=== PATIENT | male | born 1970 | race Caucasian/White ===

== ENCOUNTER 2018-06-08 14:57 | Emergency (ER) | payer OTHER, SELFPAY ==
[2018-06-08] VITALS (7 sets, daily range): BP systolic 143–165; BP diastolic 80–124; PULSE 83–117; RESP 16–20; TEMP 37.1–37.4; O2SAT 95–99; BMI 35.4
--- NOTE | 2018-06-08 15:45 | ED.VISSUMM ---
- ER Visit Summary Date of Service: 06/08/18 Chief Complaint: Feel crummy History of Present Illness: The patient is a 47 M who presents for 3 days of feeling achy and feverish. Patient states 3 days ago he began feeling crummy, with fever and generalized achiness. His symptoms have waxed and waned since then. He has tried ibuprofen. He took 2 Keflex that were in the house. For the last days he has been having diarrhea. Today he feels weak and lightheaded. He denies any sore throat, ear pain, cough or congestion, chest pain, shortness of breath, abdominal pain, nausea or vomiting. He did get kicked in the left lower chest/upper abdomen by a cow last week. It did not hurt initially but he has been having some mild pain that has developed since a couple days afterwards. He denies any pain with breathing. Physical Examination: Vital signs: afebrile, hemodynamically stable, no hypoxia on room air General: well nourished, well developed, in no distress, appears ill Skin: warm, diaphoretic, no rash, no pallor HEENT: normocephalic and atraumatic; PERRL, EOMI, moist mucous membranes no oropharyngeal exudates or lesions, TMs are clear and pearly without any bulging, dullness or erythema bilaterally, neck is supple and nontender, no lymphadenopathy Cardiovascular: Tachycardic rate and rhythm without murmurs, no peripheral edema, 2+ pulses all distal extremities Respiratory: No increased work of breathing, lungs are clear to auscultation bilaterally, no rales, rhonchi or wheezing, no chest wall tenderness or crepitus Abdominal: Abdomen is soft, nontender with normoactive bowel sounds, no guarding or rebound, no masses and no bruising noted to the abdomen or chest wall MSK: Moves all extremities, no deformities, normal strength Neuro: Awake and alert, oriented ?4. No facial droop, sensation and motor function intact and symmetric Test Results: Abnormal Lab Results 06/08/18 06/08/18 06/08/18 16:10 16:10 16:10 WBC 9.3 RBC 4.87 Hgb 15.0 Hct 45.3 MCV 93.0 MCH 30.8 MCHC 33.1 RDW 12.9 RDW Differential 43.9 Plt Count 248 MPV 9.4 Immature Gran % (Auto) 0.200 Neut % (Auto) 76.6 H Lymph % (Auto) 12.0 L Dubois % (Auto) 10.6 H Eos % (Auto) 0.3 Baso % (Auto) 0.3 Absolute Neuts (auto) 7.1 Absolute Lymphs (auto) 1.12 Total Counted Not Reportable Differential Comment SCANNED PT 13.7 INR 1.1 APTT 30.4 Sodium 140 Potassium 3.6 Chloride 104 Carbon Dioxide 25.0 Anion Gap 11 BUN 12 Creatinine 1.24 Estim Creat Clear Calc 88.97 Est GFR (MDRD) Af Amer 81 Est GFR (MDRD) Non-Af 67 BUN/Creatinine Ratio 9.7 L Glucose 105 Lactic Acid Calcium 9.0 Total Bilirubin 1.40 H AST 33 ALT 56 Alkaline Phosphatase 78 Total Creatine Kinase 42 Troponin I < 0.015 Total Protein 8.2 Albumin 3.6 Globulin 4.6 H Albumin/Globulin Ratio 0.8 L Urine Color Urine Clarity Urine pH Ur Specific [place] Urine Protein Urine Glucose (UA) Urine Ketones Urine Occult Blood Urine Nitrite Urine Bilirubin Urine Urobilinogen Ur Leukocyte Esterase Urine RBC Urine WBC Ur Squamous Epith Cells Urine Bacteria Hyaline Casts Fine Granular Casts Urine Mucus 06/08/18 06/08/18 16:10 17:48 WBC RBC Hgb Hct MCV MCH MCHC RDW RDW Differential Plt Count MPV Immature Gran % (Auto) Neut % (Auto) Lymph % (Auto) Dubois % (Auto) Eos % (Auto) Baso % (Auto) Absolute Neuts (auto) Absolute Lymphs (auto) Total Counted Differential Comment PT INR APTT Sodium Potassium Chloride Carbon Dioxide Anion Gap BUN Creatinine Estim Creat Clear Calc Est GFR (MDRD) Af Amer Est GFR (MDRD) Non-Af BUN/Creatinine Ratio Glucose Lactic Acid 1.3 Calcium Total Bilirubin AST ALT Alkaline Phosphatase Total Creatine Kinase Troponin I Total Protein Albumin Globulin Albumin/Globulin Ratio Urine Color Susan Urine Clarity Clear Urine pH 5.0 Ur Specific [place] 1.015 Urine Protein 100 H Urine Glucose (UA) Normal Urine Ketones 5 H Urine Occult Blood 150 H Urine Nitrite Negative Urine Bilirubin 1 H Urine Urobilinogen 1 H Ur Leukocyte Esterase 25 H Urine RBC 0 SEEN Urine WBC 0-5 SEEN Ur Squamous Epith Cells 0 SEEN Urine Bacteria 0 SEEN Hyaline Casts 0-5 SEEN Fine Granular Casts 0 SEEN Urine Mucus 3+ Clinical Impression(s) from Imaging Studies Chest X-Ray 06/08/18 16:35 IMPRESSION: No acute cardiopulmonary disease. Electronically Signed: Jony Lord DO at 17:29 EDT Tel [phone], Service support , Abdomen/Pelvis CT 06/08/18 17:09 IMPRESSION: 1. No findings suggestive of mild sigmoid diverticulitis. There is no evidence of perforation or abscess. 2. Minimal stranding about the cecal without wall thickening or other abnormality. The finding is of uncertain importance. 3. Fatty infiltration liver. There are 2 hypodensities in the liver which may represent cysts. The possibility of small hypoechoic masses cannot be ruled out. 4. Bilateral inguinal hernias. Electronically Signed: Jony Lord DO at 18:58 EDT Tel [phone], Service support , Medications Given Discontinued Medications Acetaminophen (Tylenol) 1,000 mg PO X1 ONE Stop: 06/08/18 15:44 Last Admin: 06/08/18 16:04 Dose: 1,000 mg Ciprofloxacin HCl (Cipro) 500 mg PO X1 ONE Stop: 06/08/18 19:29 Last Admin: 06/08/18 19:58 Dose: 500 mg Sodium Chloride () 1,000 mls @ 999 mls/hr IV .[id number] MARY ANN Last Admin: 06/08/18 16:05 Dose: 999 mls/hr Metronidazole (Flagyl) 500 mg PO X1 ONE Stop: 06/08/18 19:29 Last Admin: 06/08/18 19:58 Dose: 500 mg Ondansetron HCl (Zofran Odt) 4 mg PO TAKE HOME MED ONE Stop: 06/08/18 19:29 Last Admin: 06/08/18 19:59 Dose: 4 mg Emergency Department Course and Treatment: Patient presents with vague symptoms for the last 3 days, including fever, myalgias, weakness, malaise, and now with diarrhea. Patient was diaphoretic on initial evaluation, and given his vague symptoms with diaphoresis and age, chest pain workup was included. EKG showed a sinus tachycardia without any ischemic changes. Chest x-ray showed no infiltrate. CBC showed no leukocytosis or anemia. Chemistry panel remarkable for mild elevation of creatinine at 1.2. No significant hepatic derangements. CK within normal limits. Lactate normal. Patient did have a history of getting kicked in the left upper abdomen by a cow 1 week ago, and thus a CT the abdomen and pelvis was included in the workup. It showed no signs of left upper abdominal trauma, but did reveal sigmoid diverticulitis. Patient had no tenderness on abdominal exam, but fever and diarrhea is consistent with diverticulitis. Patient received acetaminophen and IV fluids while in the emergency department and had improvement in his symptoms. He did spike a fever but improved after the Tylenol. On reevaluation he was feeling better no longer was diaphoretic. He was given Cipro and Flagyl for the diverticulitis and Zofran as well. He declined any pain medications and will take [id number] pain medication as needed. He was given a work note and discharged home with strict return instructions. Discharged in improved condition. Treatment Plan: [] Disposition: [] Impression: Acute sigmoid diverticulitis This note was generated with [employer] dictation software. It may contain incorrect words, spelling, and punctuation that were not noted in review of the chart prior to signing ED Disposition - Plan for ED Patient: Disposition: Home or Assisted Living Chief Complaint: Dizziness Instructions: ED Diverticulitis Prescriptions: Ondansetron [Zofran Odt] 4 mg PO Q8H PRN PRN #10 tab PRN Reason: Nausea Ciprofloxacin [Cipro] 500 mg PO BID #19 tab Metronidazole [Flagyl] 500 mg PO TID #29 tab Referrals: Jasen Metzger [Primary Care Provider] - 3-5 Days if not improving Additional Instructions: Take the antibiotic as prescribed for the full 10 days even if you feel better before then. You can continue using [id number] pain medication as needed for fever and pain. Use the Zofran to help with any nausea. If you have any worsening of your condition or any new concerning symptoms, please return immediately to the emergency department for another evaluation.
[2018-06-08] MEDS: Acetaminophen 500 MG Tablet 1000 MG PO (16:04)
[2018-06-08] MEDS: 0.9% Normal Saline 1,000 ML 999 ML IV (16:05)
[2018-06-08 16:33] LABS: International Normalized Ratio 1.1; Prothrombin Time (Protime)PT. 13.7 SECONDS (11.7-14.9)
[2018-06-08 16:34] LABS: Partial Thromboplast Time 30.4 Seconds (24.1-36.2)
[2018-06-08 16:39] LABS: Absolute Lymphocyte Count 1.12 X10^3/ul (0.83-4.51); Absolute Neutrophil Count 7.1 X10^3/uL (2.0-7.7); Basophil# 0.03 X10^3/uL; Basophil% 0.3 % (0-1); Differential Indicated SCAN CRITERIA MET; Eosinophil# 0.03 X10^3/uL; Eosinophils% 0.3 % (0-5); Hematocrit 45.3 % (40-54); Lymphocyte # 1.12 X10^3/ul (4.0); Mean Corp Hgb Conc 33.1 g/gl (32-36); Mean Corpuscular Hgb 30.8 pg (27.0-32.0); Mean Platelet Vol. 9.4 fl (6.2-12.0); Monocyte# 0.99 X10^3/uL; Monocyte% 10.6 % (0-10); Neutrophil # 7.12 X10^3/uL (2.7-7.7); Neutrophil % 76.6 % (47-70); POSITIVE COUNT NO; POSITIVE DIFFERENTIAL NO; POSITIVE MORPHOLOGY YES; Platelet Count 248 K/mm3 (150-450); RBC Distribution Width CV 12.9 % (11.6-14.6); RBC Distribution Width SD 43.9 fl (35.1-43.9); Red Blood Count 4.87 M/mm3 (4.6-6.2); White Blood Count 9.3 K/mm3 (4.4-11.0)
[2018-06-08 16:45] LABS: ALB/GLOB Ratio 0.8 RATIO (0.9-2.4); AST(SGOT) 33 U/L (15-37); Alanine Aminotransfer ALT/SGPT 56 U/L (16-61); Albumin, Serum 3.6 g/dL (3.2-5.0); Alkaline Phosphatase 78 U/L (45-117); Anion Gap 11 (5-15); BUN 12 mg/dL (7-18); BUN/Creat Ratio 9.7 RATIO (10-20); CPK Total, Creatine Kinase 42 U/L (39-308); Chloride 104 mmol/L (98-107); Creatinine, Serum 1.24 mg/dL (0.70-1.30); EST Glomerular Filtration Rate 67 mL/min (>60); Est Glom Filt Rate - Afr Amer 81 mL/min (>60); Estimated Creatinine Clearance 88.97 ml/min; Globulin 4.6 g/dL (2.2-4.2); Glucose 105 mg/dL (74-106); Potassium 3.6 mmol/L (3.5-5.1); Protein, Total 8.2 g/dL (6.4-8.2); Sodium Level 140 mmol/L (136-145)
[2018-06-08 16:53] LABS: Lactic Acid 1.3 mmol/L (0.4-2.0)
[2018-06-08 16:55] LABS: Differential Comment SCANNED
[2018-06-08 17:57] LABS: Bacteria 0 SEEN /hpf (None Seen); Red Blood Cells-Urine 0 SEEN /hpf (0-5); Squamous Epithelial Cells - UA 0 SEEN /hpf (0-5)
[2018-06-08 18:05] LABS: Color, Urine Amber (Yellow); Glucose, Dipstick Normal (Normal); Ketone-Dipstick 5 mg/dl (Negative); Leukocyte Esterase-Dipstick 25 /ul (Negative); Nitrite-Dipstick Negative (Negative); Occult Blood-Urine 150 /ul (Negative); Protein-Dipstick 100 mg/dl (Negative); Specific Gravity, Urine 1.015 (1.002-1.030); Urine Clarity Clear (Clear); Urine Urobilinogen 1 mg/dl (Normal)
[2018-06-08 18:12] LABS: Urine Bilirubin Dipstick 1 mg/dL (Negative)
[2018-06-08 18:18] LABS: Hyaline Cast 0-5 SEEN /lpf (0-5); Mucous, Urine 3+ /hpf (<or=2+); White Blood Cells 0-5 SEEN /hpf (0-5)
[2018-06-08 18:20] LABS: Fine Granular Cast- Urine 0 SEEN /lpf (0-5)
--- NOTE | 2018-06-08 19:31 | ED.DEP ---
ED Disposition - Plan for ED Patient: Disposition: Home or Assisted Living Chief Complaint: Dizziness Instructions: ED Diverticulitis Prescriptions: Ondansetron [Zofran Odt] 4 mg PO Q8H PRN PRN #10 tab PRN Reason: Nausea Ciprofloxacin [Cipro] 500 mg PO BID #19 tab Metronidazole [Flagyl] 500 mg PO TID #29 tab Referrals: Jasen Metzger [Primary Care Provider] - 3-5 Days if not improving Additional Instructions: Take the antibiotic as prescribed for the full 10 days even if you feel better before then. You can continue using [id number] pain medication as needed for fever and pain. Use the Zofran to help with any nausea. If you have any worsening of your condition or any new concerning symptoms, please return immediately to the emergency department for another evaluation.
[2018-06-08] MEDS: metroNIDAZOLE 500 MG Tablet PO (19:58)
[2018-06-08] MEDS: Ciprofloxacin 500 MG Tablet PO (19:58)
[2018-06-08] MEDS: Ondansetron ODT 4 MG Tablet PO (19:59)
--- NOTE | 2018-06-08 20:25 | ED.RN ---
REVIEWED D/C INSTRUCTIONS, FOLLOW UP CARE, PRESCRIPTIONS, AND S/S THAT WOULD WARRANT A RETURN TO THE ED WITH PT. PT VERBALIZED AN UNDERSTANDING AND DENIES FURTHER QUESTIONS FOR THIS RN. PT SKIN P/W/D, RESP EVEN AND UNLABORED, PT A&O X 3, NO DISTRESS NOTED. PT AMBULATED OUT OF ED, GAIT STEADY.
== END 2018-06-08 20:42 | disposition home or self-care (01) ==
PROVIDERS: Emergency Provider Emergency Medicine; Family Provider Family Medicine; PCP Family Medicine
DX: K57.32 Diverticulitis of large intestine without perforation or abscess without bleeding (principal)
CPT/HCPCS: 36415; 71046; 74177; 80053; 81001; 82550; 83605; 84484; 85025; 85610; 85730; 87040; 87086; 93005; 96360; 96361; 99285; J7030; Q9967

== ENCOUNTER → 2025-02-22 | Outpatient (CLI) | payer OTHER, SELFPAY ==
[2025-02-22 22:10] LABS: Absolute Lymphocyte Count 2.19 X10^3/uL (0.83-4.51); Absolute Neutrophil Count 2.8 X10^3/uL (2.0-7.7); Basophil# 0.08 X10^3/uL; Basophil% 1.4 % (0-1); Eosinophil# 0.14 X10^3/uL; Eosinophils% 2.4 % (0-5); Hematocrit 43.3 % (40-54); Hemoglobin 14.6 g/dL (13.0-16.5); Lymphocyte # 2.19 X10^3/ul (0.83-4.51); Lymphocyte % 37.2 % (19-41); Mean Corp Hgb Conc 33.7 g/dL (32-36); Mean Corpuscular Hgb 31.7 pg (27.0-32.0); Mean Corpuscular Volume 93.9 fL (80-94); Monocyte# 0.63 X10^3/uL; Monocyte% 10.7 % (0-10); NRBC Flagged by Analyzer 0 % (0-5); Neutrophil % 47.5 % (47-70); Platelet Count 281 K/mm3 (150-450); RBC Distribution Width CV 12.3 % (11.6-14.6); RBC Distribution Width SD 42.5 fl (35.1-43.9); Red Blood Count 4.61 M/mm3 (4.6-6.2); White Blood Count 5.9 K/mm3 (4.4-11.0)
[2025-02-22 22:38] LABS: ALB/GLOB Ratio 1.3 RATIO (0.9-2.4); AST(SGOT) 31 U/L (<=37); Alanine Aminotransfer ALT/SGPT 31 U/L (<=46); Albumin, Serum 4.6 g/dL (3.5-5.0); Alkaline Phosphatase 76 U/L (40-129); Anion Gap 11 (5-15); BUN 22 mg/dL (4-19); BUN/Creat Ratio 19.3 RATIO (10-20); Calcium,Total 9.9 mg/dL (7.6-11.0); Carbon Dioxide 24.4 mmol/L (21.0-32.0); Chloride 103 mmol/L (98-108); Cholesterol 233 mg/dL (<=200); Creatinine, Serum 1.13 mg/dL (0.70-1.20); EST Glomerular Filtration Rate 78 (>60); Globulin 3.4 g/dL (2.2-4.2); Glucose 83 mg/dL (70-99); High Density Lipoprotein 38 mg/dL; Low Density Lipoprotein Calc. 133 mg/dL; PSA,Total - Annual Screen 0.27 ng/mL (0.02-4.00); Potassium 4.3 mmol/L (3.3-5.1); Protein, Total 8.1 g/dL (5.9-8.4); Sodium Level 138 mmol/L (133-145); Total Bilirubin 0.68 mg/dL (0.00-1.30); Triglycerides 313 mg/dL; Very Low Density Lipoprotein 63 mg/dL (5-40); cholesterol:hdl ratio screen 6.15
== END | disposition home or self-care (01) ==
LOC: OLS.AHF 22:06
PROVIDERS: PCP Family Medicine; Visit Provider Nurse Practitioner
DX: E78.00 Pure hypercholesterolemia, unspecified (principal); I10 Essential (primary) hypertension; Z12.5 Encounter for screening for malignant neoplasm of prostate
CPT/HCPCS: 80053; 80061; 84153; 84443; 85025; G0103